=== PATIENT | female | born 1985 | race African-American/Black ===

== ENCOUNTER 2016-07-06 13:24 | Emergency (ER) | payer OTHER ==
[2016-07-06 13:43] VITALS: BP 108/67; PULSE 72; TEMP 98.2; BMI 22.6
--- NOTE | 2016-07-06 15:47 | PDOC ---
History of Present Illness - General Chief Complaint: Cold Symptoms Stated Complaint: COLD SYMPTOMS Time Seen by Provider: 07/06/16 15:11 History Source: Patient Exam Limitations: No Limitations - History of Present Illness Initial Comments: 07/06/16 15:46 My Chief complaint: Sore throat and fever History of present illness: Patient is a 30-year-old female with no significant medical history here today complaining of fever, chills, and sore throat 2 days. Patient denies any difficulty swallowing or breathing, nausea vomiting or diarrhea or cough. Patient did not have influenza vaccine. 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 07/06/16 15:48 Timing/Duration: intermittent (2 days fever and sore throat) Severity: mild Associated Symptoms: reports: fever/chills, other (sore throat 2 days) Past History - Past Medical History Allergies/Adverse Reactions: Allergies Allergy/AdvReac Type Severity Reaction Status Date / Time No Known Allergies Allergy Verified 07/06/16 13:39 Home Medications: Ambulatory Orders Vitamins (Sjr) - 1 tab PO DAILY 04/03/14 Penicillin V Potassium [Pen Vee K -] 500 mg PO QID #28 tablet 07/06/16 Other medical history: NONE - Psycho/Social/Smoking Cessation Hx Anxiety: No Suicidal Ideation: No Smoking History: Never smoked Have you smoked in the past 12 months: No Information on smoking cessation initiated: No Hx Alcohol Use: No Drug/Substance Use Hx: No Substance Use Type: None Hx Substance Use Treatment: No Review of Systems - Review of Systems Able to Perform ROS?: Yes Constitutional: Yes: Chills, Fever HEENTM: Yes: Throat Pain Respiratory: No: Symptoms reported Cardiac (ROS): No: Symptoms Reported ABD/GI: No: Symptoms Reported : No: Symptoms Reported Musculoskeletal: No: Symptoms Reported Integumentary: No: Symptoms Reported Neurological: No: Symptoms reported *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 - Vital Signs Last Vital Signs Temp Pulse Resp BP Pulse Ox 98.2 F 72 18 108/67 100 07/06/16 13:40 07/06/16 13:40 07/06/16 13:40 07/06/16 13:40 07/06/16 13:40 - 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 General Appearance: Yes: Appropriately Dressed HEENT: positive: TMs Normal, Pharyngeal Erythema, Tonsillar Erythema (with no uvular deviation ). negative: Tonsillar Exudate, Nasal Congestion, Rhinorrhea Neck: positive: Lymphadenopathy (R), Lymphadenopathy (L) Respiratory/Chest: positive: Lungs Clear, Normal Breath Sounds. negative: Chest Tender, Respiratory Distress Cardiovascular: positive: Regular Rhythm, Regular Rate, S1, S2 Integumentary: positive: Normal Color Neurologic: positive: Alert, Normal Response, Responsive Medical Decision Making - Medical Decision Making 07/06/16 15:48 Patient is a 30-year-old female with no significant medical history here today complaining of fever, chills, and sore throat 2 days. Patient denies any difficulty swallowing or breathing, nausea vomiting or diarrhea or cough. Patient did not have influenza vaccine. 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 Tonsillitis rule out strep throat Fever Rule out influenza A or B Plan: Throat C&S negative however clinical symptoms will treat for strep throat with pen vk 500 mg qid for 7 days Influenza A and B rapid negative 07/06/16 16:13 *DC/Admit/Observation/Transfer Diagnosis at time of Disposition: Acute tonsillitis Qualifiers: Pharyngitis/tonsillitis etiology: unspecified etiology Qualified Code(s): J03.90 - Acute tonsillitis, unspecified - Discharge Dispostion Disposition: HOME Condition at time of disposition: Stable - Patient Instructions Additional Instructions: Drink a lot a fluids and rest Throat without toothbrush at end of treatment Ibuprofen or acetaminophen as needed as directed by system specialist for fever or pain Return to emergency room if any difficulty breathing or swallowing Patient voiced understanding of discharge instructions and all questions were answered
== END 2016-07-06 16:25 | disposition home or self-care (01) ==
LOC: JERFT 13:24
DX: J03.90 Acute tonsillitis, unspecified (principal)
CPT/HCPCS: 87070; 87430; 87804; 99281-25

== ENCOUNTER 2017-01-02 13:30 | Inpatient (IN) | payer OTHER ==
[2017-01-02 14:13] VITALS: BMI 27.7
[2017-01-02] MEDS ORDERED: BUTORPHANOL TARTRATE 1 MG/ML VIAL IVPB ONE (15:13)
[2017-01-02] MEDS ORDERED: PROMETHAZINE HCL 25 MG/1 ML VIAL IVPUSH ONE (15:13)
[2017-01-02] MEDS ORDERED: ACETAMINOPHEN 325 MG TABLET (FP) PO PRN (15:16)
[2017-01-02] MEDS: MISOPROSTOL 200 MCG TABLET PV SCH ×3 (15:20→23:30)
[2017-01-02] MEDS: DEXTROSE 5%-LACTATED RINGERS 1,000 ML IV SCH ×2 (15:30→23:00)
--- NOTE | 2017-01-02 15:37 | HP ---
Past Medical History - Primary Care Physician PCP:: Key Sandy - Admission Chief Complaint: 31 yrs , LMP 07/26/16,EDC 05/02/17 by 22.3 weeks, by dates, EDC by sono 04/27/17 23.4/7 weeks by sono is diagnosed demise admitted for induction of labor sono report 23.4 wks, IUFD , Vx, placenta post , Cx 3.7 cm History of Present Illness: care at , [facility] pt was seen in L&D on 12/28/16 , c/o groin pain , spontaneous variable decel were seen one decel was down to 70 bpm . No UC were seen 12/28/16 sono reported 22.6/7 weeks sliup variable position, post placenta, , AF wnl. EFW 1'2" ( 41 % tile growth ) CX 3.56 cm work Up A Pos, Hbsag neg, Rpr nr, Rubella pos, Hiv neg , Sickle neg NT screen not done. 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 Weeks Gestation by Dates: 23.4 ...EDC by Dates: 05/02/17 ...EDC by Sono: 04/27/17 (23.4 weeks by sono ) Additional OB History: G1 07/2000 Ind Ab 16 weeks. G2 02/10/2007 7'2 ". G3 03/19/2010 9'8" [facility]. G4 09/15/2011 Ind Ab 07 weeks h/o hemorrhage. G5 Sp Ab 03 weeks. G6 04/04/2014 6'5" [facility] Heme/Onc: Yes: Anemia Infectious Disease: No: AIDS, C-Diff, HIV, STD's Psych: No: Addictions, Bipolar, Depression - Past Surgical History Past Surgical History: Yes: Breast Biopsy (lt breast biopsy) Hx Myomectomy: No Hx Transabdominal Cerclage: No - Smoking History Smoking history: Never smoked Have you smoked in the past 12 months: No - Alcohol/Substance Use Hx Alcohol Use: No History of Substance Use: reports: None - Social History History of Recent Travel: No Home Medications - Allergies Allergies/Adverse Reactions: Allergies Allergy/AdvReac Type Severity Reaction Status Date / Time No Known Allergies Allergy Verified 07/06/16 13:39 - Home Medications Home Medications: Ambulatory Orders RX: Vitamins (Sjr) - 1 tab PO DAILY 04/03/14 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 - Maternity Vital Signs: Vital Signs Temperature 98.9 F 01/02/17 14:03 Pulse Rate 85 01/02/17 14:03 Respiratory Rate 20 01/02/17 14:03 Blood Pressure 122/69 01/02/17 14:03 O2 Sat by Pulse Oximetry (%) Constitutional: Yes: Well Nourished Eyes: Yes: WNL HENT: Yes: WNL, Normocephalic Neck: Yes: WNL Cardiovascular: Yes: WNL Lungs: Clear to auscultation Breast(s): Yes: WNL - Abdominal Exam/OB Fundal Height: 24 Number of Fetuses: Single Presentation: Vertex Contractions: No Heart Rate (range): abs Accelerations: None Decelerations: None - Vaginal Exam/OB Vaginal Bleediing: No Speculum Exam: No Dilatation (cm): close Effacement (%): 0% Amniotic Membrane Status: Intact Presentation: Vertex/Position Station: -4 - 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 Musculoskeletal: Yes: WNL Extremities: No: Calf Tenderness Integumentary: Yes: Tattoos Deep Tendon Reflex Grade: Normal +2 ...Motor Strength: WNL Psychiatric: Yes: WNL, Alert, Oriented - Labs Lab Results: Laboratory Tests 01/02/17 01/02/17 01/02/17 14:30 14:30 14:30 WBC 8.2 D Hgb 12.3 Hct 36.7 Plt Count 243 D Neutrophils % 60.6 D Lymphocytes % 25.1 D Monocytes % 7.0 Eosinophils % 6.8 H D Basophils % 0.5 INR 0.99 PTT (Actin FS) 26.1 L Sodium 137 Potassium 3.7 Chloride 105 Carbon Dioxide 21 BUN 7 Creatinine 0.5 L D Random Glucose 66 L Calcium 8.8 Total Bilirubin 0.4 AST 18 ALT 21 Problem List - Problems (1) with 23 completed weeks gestation Code(s): Z3A.23 - 23 WEEKS GESTATION OF (2) IUFD at 20 weeks or more of gestation Code(s): O36.4XX0 - MATERNAL CARE FOR INTRAUTERINE , NOT APPLICABLE OR UNSP (3) Elective induction of labor planned Code(s): PPK8402 - Assessment/Plan 31 yrs , 23.4/7 weeks , IUFD . pt was offered to be transferred to [facility] for D&E versus induction with Vag Misoprostol Pt prefers to be induced at [facility] . Plan Misoprostol 400 MCG PV q 3Hr until delivery
[2017-01-02 15:40] LABS: BASOPHIL 0.5 % (0-2.0); EOSINOPHIL 6.8 % (0-4.5); MCH 28.6 pg (25.7-33.7); MCHC 33.5 g/dl (32.0-36.0); MEAN CELL VOLUME 85.5 fl (80-96); MEAN PLT VOLUME 8.3 fl (7.5-11.1); NEUTROPHILS 60.6 % (42.8-82.8); PLATELET COUNT 243 K/MM3 (134-434); RDW 15.6 % (11.6-15.6); WHITE BLOOD COUNT 8.2 K/mm3 (4.0-10.0)
[2017-01-02 15:52] LABS: INR 0.99 (0.82-1.09); PROTHROMBIN TIME (PATIENT) 10.9 SEC (9.98-11.88)
[2017-01-02 15:55] LABS: ACTIVATED PTT 26.1 SECONDS (26.9-34.4)
[2017-01-02 16:01] LABS: ALBUMIN 2.9 g/dl (3.4-5.0); ALK PHOS 54 U/L (45-117); ANION GAP 11 (8-16); BILIRUBIN,TOTAL 0.4 mg/dL (0.2-1.0); CALCIUM 8.8 mg/dL (8.5-10.1); CO2 21 mmol/L (21-32); CREATININE 0.5 mg/dL (0.55-1.02); GLUCOSE,RANDOM 66 mg/dL (74-106); SGOT/AST 18 U/L (15-37); SGPT/ALT 21 U/L (12-78); TOT PROT 6.9 g/dl (6.4-8.2)
--- NOTE | 2017-01-02 23:47 | PN ---
Progress Note (short form) - Note Progress Note: 23.6 weeks , IUFD h/o last FM felt yesterday Misoprostol ( cytotec ) 400 mcg, was inserted at 15.20. 19.50,, 23.30 hr . Onset of cramps since 22 hr . Stadol 2mg + Phenrgan 25 mg iv stat given for pain at 23.00 hr . 23.30 hr cx 5 cm /100%/FL /pp soft ? breech /station -2/-1 . c/o shivering Temp 99.0 Selected Entries 01/02/17 01/02/17 22:00 23:00 Temperature 99.2 F Pulse Rate 85 83 Blood Pressure 100/55 112/[address] intrapartum care Laboratory Tests 01/02/17 01/02/17 14:30 14:30 Fibrinogen 356.0 Fibrin Degrad Products Pending Problem List - Problems (1) with 23 completed weeks gestation Code(s): Z3A.23 - 23 WEEKS GESTATION OF (2) IUFD at 20 weeks or more of gestation Code(s): O36.4XX0 - MATERNAL CARE FOR INTRAUTERINE , NOT APPLICABLE OR UNSP (3) Elective induction of labor planned Code(s): TDD8789 -
--- NOTE | 2017-01-03 00:55 | PN ---
Delivery - Delivery Vaginal Delivery: No Problems, Spontaneous Episiotomy/Laceration: None EBL (cc): 200 Delivery, Single - Stages of Labor Date 1st Stage Initiatied: 01/02/17 Time 1st Stage Initiated: 22:00 Date 2nd Stage Initiated: 01/03/17 Time 2nd Stage Initiated: 00:05 Date of Delivery: 01/03/17 Time of Delivery: 00:15 (fetus in sac with placenta completely delievered as one mass. 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 bluish discolration around umblicus , cord insertion site for large area in circular diameter of 3 cm .umblical cord is thtrmbosed throught the length .) Position: OA - 1 Minute Total Score: 0 5 Minutes Total Score: 0 - Feeding Plan Initial Plan: Elected not to breastfeed exclusively throughout hospitalization Remarks - Remarks Remarks: 31 yrs , 23.5/7 weeks gestation diagnosed IUFD Pnc at [address] [place] [address] . Cytotec 400 mg pv x 3 doses reqd. stadol + phenrgan iv for labor analgesia was given Intrapartum course uneventful .
[2017-01-03] MEDS ORDERED: IBUPROFEN 600 MG TABLET (FP) PO PRN (01:02)
[2017-01-03] MEDS ORDERED: BENZOCAINE 20% 57 GM BOTTLE TP PRN (01:02)
[2017-01-03] MEDS ORDERED: BENZOCAINE 28 GM HEMORRHOIDAL OINTMENT TP PRN (01:02)
[2017-01-03] MEDS ORDERED: BISACODYL 10 MG SUPP.RECT RC PRN (01:02)
[2017-01-03] MEDS ORDERED: WITCH HAZEL 50% (TUCKS) 40 PAD/JAR PAD TP PRN (01:02)
[2017-01-03] MEDS ORDERED: METHYLERGONOVINE MALEATE 0.2 MG/1 ML AMP IM PRN (01:02)
[2017-01-03] MEDS ORDERED: oxyCODONE HCL 5 MG TABLET PO PRN (01:02)
[2017-01-03] MEDS ORDERED: CEFAZOLIN 1 GM/D5W 50 ML IVPB ONE (01:13)
[2017-01-03] MEDS ORDERED: D5W-LR W/ 20 UNITS OXYTOCIN 1,000 ML IV SCH (01:15)
[2017-01-03] MEDS: MISOPROSTOL 200 MCG TABLET PV SCH (02:17)
[2017-01-03] MEDS: FERROUS SO4 325 MG TABLET (FP) PO SCH ×2 (07:45→17:31)
--- NOTE | 2017-01-03 09:50 | PN ---
Post Progress Note - Subjective Subjective: no complains Post Day: 0 Type of Delivery: Vital Signs: Vital Signs Temperature 99.1 F 01/03/17 05:04 Pulse Rate 77 01/03/17 05:04 Respiratory Rate 20 01/03/17 05:04 Blood Pressure 117/67 01/03/17 05:04 O2 Sat by Pulse Oximetry (%) 100 01/03/17 01:30 Breast Exam: Yes: Soft. No: Engorged Uterus: Yes: Non-tender. No: Fundus Firm Lochia: Yes: Rubra Lochia, amount: Moderate Extremities: Yes: Calves non-tender Perineum: Yes: Intact Activity: Ambulating - Labs Labs: CBC WBC 8.2 K/mm3 (4.0-10.0) D 01/02/17 14:30 RBC 4.29 M/mm3 (3.60-5.2) 01/02/17 14:30 Hgb 12.3 GM/dL (10.7-15.3) 01/02/17 14:30 Hct 36.7 % (32.4-45.2) 01/02/17 14:30 MCV 85.5 fl (80-96) 01/02/17 14:30 MCH 28.6 pg (25.7-33.7) 01/02/17 14:30 MCHC 33.5 g/dl (32.0-36.0) 01/02/17 14:30 RDW 15.6 % (11.6-15.6) 01/02/17 14:30 Plt Count 243 K/MM3 (134-434) D 01/02/17 14:30 MPV 8.3 fl (7.5-11.1) 01/02/17 14:30 Neutrophils % 60.6 % (42.8-82.8) D 01/02/17 14:30 Lymphocytes % 25.1 % (8-40) D 01/02/17 14:30 Monocytes % 7.0 % (3.8-10.2) 01/02/17 14:30 Eosinophils % 6.8 % (0-4.5) H D 01/02/17 14:30 Basophils % 0.5 % (0-2.0) 01/02/17 14:30 Problem List - Problems (1) with 23 completed weeks gestation Code(s): Z3A.23 - 23 WEEKS GESTATION OF (2) IUFD at 20 weeks or more of gestation Code(s): O36.4XX0 - MATERNAL CARE FOR INTRAUTERINE , NOT APPLICABLE OR UNSP (3) Elective induction of labor planned Code(s): IUG8891 - Assessment/Plan stable pt is well adjusted & accepted demise . requests for discharge tomorrow. social welfare research worker to see her today.
[2017-01-03] MEDS: PRENATAL VITAMINS W/ FOLIC ACID TABLET (FP) PO SCH (10:06)
[2017-01-04] MEDS: FERROUS SO4 325 MG TABLET (FP) PO SCH (08:06)
--- NOTE | 2017-01-04 08:33 | PN ---
Progress Note (short form) - Note Progress Note: ppd1 doing well, no pain, no excess vaginal bleeding CBC, BMP 01/02/17 14:30 01/02/17 14:30 Last Vital Signs Temp Pulse Resp BP Pulse Ox 98.4 F 72 20 104/70 100 01/03/17 21:00 01/03/17 21:00 01/03/17 21:00 01/03/17 21:00 01/03/17 01:30 uterus firm, non tender lochia mild, no calf tendernes plan ambulate, cbc d/c home . rtc 4 weeks, instruction given
[2017-01-04 08:53] LABS: BASOPHIL 0.7 % (0-2.0); EOSINOPHIL 4.4 % (0-4.5); MCH 28.6 pg (25.7-33.7); MCHC 33.3 g/dl (32.0-36.0); MEAN CELL VOLUME 85.9 fl (80-96); MEAN PLT VOLUME 8.2 fl (7.5-11.1); NEUTROPHILS 69.7 % (42.8-82.8); PLATELET COUNT 204 K/MM3 (134-434); WHITE BLOOD COUNT 10.8 K/mm3 (4.0-10.0)
[2017-01-04] MEDS: PRENATAL VITAMINS W/ FOLIC ACID TABLET (FP) PO SCH (09:12)
[2017-01-04 11:46] VITALS: BP 110/68; PULSE 79; TEMP 98.2
--- NOTE | 2017-01-04 15:49 | DS ---
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-TAPER MACHINE Vital Signs: Vital Signs Temperature 98.2 F 01/04/17 09:00 Pulse Rate 79 01/04/17 09:00 Respiratory Rate 20 01/04/17 09:00 Blood Pressure 110/68 01/04/17 09:00 O2 Sat by Pulse Oximetry (%) 100 01/03/17 01:30 Constitutional: Yes: Well Nourished Eyes: Yes: WNL HENT: Yes: WNL Neck: Yes: WNL Cardiovascular: Yes: WNL, Regular Rate and Rhythm Respiratory: Yes: WNL, Regular Gastrointestinal: Yes: WNL, Normal Bowel Sounds ...Rectal Exam: Yes: WNL Renal/: Yes: WNL Pelvis: Yes: WNL External Genitalia: Yes: Normal ....Post : Yes: Uterus firm, Uterus non-tender, Moderate lochia rubra, Moderate lochia serosa Musculoskeletal: Yes: WNL Extremities: Yes: WNL. No: Calf Tenderness Edema: No Integumentary: Yes: WNL, Tattoos Neurological: Yes: WNL ...Motor Strength: WNL Psychiatric: Yes: WNL, Alert Labs: CBC, BMP 01/04/17 07:30 01/02/17 14:30 Delivery - Delivery Vaginal Delivery: No Problems, Spontaneous (sac, with fetus within & placenta expelled spontaeneously) Type of Anesthesia: None Episiotomy/Laceration: None EBL (cc): 200 Delivery, Single - Stages of Labor Date 1st Stage Initiatied: 01/02/17 Time 1st Stage Initiated: 22:00 Date 2nd Stage Initiated: 01/03/17 Time 2nd Stage Initiated: 00:05 Date of Delivery: 01/03/17 Time of Delivery: 00:15 Time Placenta Delivered: 00:15 Placenta: Yes: Spontaneous, Uterine Exploration - Condition of Infant Transport 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 Cytotec 400 mg pv x 3 doses reqd. stadol + phenrgan iv for labor analgesia was given Intrapartum course uneventful .. post course uneventful . discharge 01/04/17 Discharge Summary Reason For Visit: DEMISE Condition: Stable - Instructions Diet, Activity, Other Instructions: Discharge Instructions * Out of Bed * Regular Diet * Matilde Care * Avoid sex for 6 weeks * RTC 6 weeks for pp visit , call [phone] for appt If you experience excessive bleeding or fever over 101 degrees, call doctor, the clinic or go to the Emergency Room. Referrals: Key Sandy MD [Staff Physician] - Disposition: HOME - Home Medications Comprehensive Discharge Medication List: Ambulatory Orders Vitamins (Sjr) - 1 tab PO DAILY 04/03/14 Acetaminophen [Tylenol .Regular Strength -] 650 mg PO Q4H PRN #0 tablet Ferrous Sulfate [Feosol] 325 mg PO BIDWM tab 01/03/17 Ibuprofen [Motrin -] 200 mg PO Q4H PRN #0 tablet 01/03/17 Vitamins (Sjr) - 1 tab PO DAILY tablet 01/03/17
[2017-01-04] MEDS ORDERED: SENNOSIDES/DOCUSATE COMBO (SENNA PLUS) TABLET (UD) PO PRN (22:00)
--- NOTE | 2017-01-08 16:03 | PATH ---
Surgical Pathology Report Patient Name: EV SAL Med. Rec. #: [id number] /Age/Gender: 1985 (Age: 31) / F Account: [id number] Location: [facility] OBS/PIGMENT PROCESSOR Taken: 01/03/2017 Received: 01/03/2017 Reported: 01/08/2017 Physicians: Key Sandy M.D. Specimen(s) Received PLACENTA Clinical History , demise at 23 weeks 5 days - demise Final Diagnosis PLACENTA, DELIVERY: FOCALLY DISRUPTED IMMATURE SECOND TRIMESTER PLACENTA WITH CHRONIC DECIDUITIS, SCATTERED CIRCULATING NUCLEATED RED BLOOD CELLS, MILD INCREASE PREVILLOUS FIBRIN DEPOSITION, THREE VESSEL HYPERCOILED UMBILICAL CORD AND PLACENTAL MEMBRANES WITH ACUTE CHORIOAMNIONITIS. Electronically Signed Fredrick Rubio M.D. Gross Description The specimen is received fresh, labeled "placenta" and is a 156 gram, 11.0 x 10.5 x 2.2 cm placenta with attached membranes and umbilical cord. The attached membranes are gomez with focal opacities and insert marginally. The umbilical cord has a brown, dusky appearance and is hypercoiled. The cord measures 27 cm. in length and averages 0.8 cm. in diameter. The cord inserts eccentrically, 2 cm to the nearest margin. No true knots or strictures are identified. Cut surface of the umbilical cord reveals 3 vessels. The surface is fischer-blue with minimal fibrin deposition and appropriate caliber vessels. The maternal surface is red-brown with focal defects. Sectioning reveals pale gomez-pink, spongy parenchyma. No focal lesions are identified. Intensive Care Unit Registered Nurse sections are submitted in 4 cassettes as follows: 1- membrane rolls and umbilical cord; 2- 4 - full thickness sections of placenta. 01/07/201701/07/2017
== END 2017-01-04 10:55 | disposition home or self-care (01) | DRG 560 ==
LOC: JLDR 13:30 → J3W 01-03 02:30
PROVIDERS: ADMIT Obstetrics & Gynecology; ATTEND Obstetrics & Gynecology
PROC: 10E0XZZ Delivery of Products of Conception, External Approach (ICD-10-PCS; principal; 2017-01-03)
DX: O36.4XX0 Maternal care for intrauterine death, not applicable or unspecified (principal); Z3A.23 23 weeks gestation of pregnancy; Z37.1 Single stillbirth
CPT/HCPCS: 36415; 59409; 80053; 85025; 85362; 85384; 85610; 85730; 86593; 86850; 86900; 86901; 88307-TC

== ENCOUNTER 2018-04-21 18:51 | Emergency (ER) | payer OTHER ==
[2018-04-21 19:27] VITALS: BP 117/67; PULSE 18; TEMP 99.3; BMI 29.0
--- NOTE | 2018-04-21 19:28 | PDOC ---
Rapid Medical Evaluation Time Seen by Provider: 04/21/18 19:26 Medical Evaluation: Allergies Allergy/AdvReac Type Severity Reaction Status Date / Time No Known Allergies Allergy Verified 07/06/16 13:39 04/21/18 19:27 Pt c/o: lower/mid rt abd pain x 1 day, no other complaints Pt on brief exam: no cva tenderness pt ordered for: ua, upreg pt to proceed to the ED Discharge Disposition - Diagnosis Abdominal pain - Referrals - Patient Instructions - Post Discharge Activity
== END 2018-04-21 21:44 | disposition left against medical advice (07) ==
LOC: JER 18:51
DX: R10.30 Lower abdominal pain, unspecified (principal)
CPT/HCPCS: 99281-25

== ENCOUNTER 2019-01-27 11:01 | Emergency (ER) | payer OTHER ==
[2019-01-27 11:10] VITALS: TEMP 99.6; BMI 24.2
[2019-01-27] MEDS ORDERED: morphine CARPU-JECT 4 MG/1 ML DISP.SYRIN IVPUSH ONE (12:53)
[2019-01-27] MEDS ORDERED: SODIUM CHLORIDE 1,000 ML IV STA (13:03)
[2019-01-27] MEDS ORDERED: morphine SULFATE 4 MG/ML VIAL ONE (13:53)
[2019-01-27 14:16] LABS: BASO % 0.4 % (0-2.0); EOS % 0.1 % (0-4.5); HEMATOCRIT 38.6 % (32.4-45.2); HEMOGLOBIN 12.8 GM/dL (10.7-15.3); LYMPH % 11.7 % (8-40); MCH 27.5 pg (25.7-33.7); MCHC 33.2 g/dl (32.0-36.0); MEAN CELL VOLUME 82.8 fl (80-96); MEAN PLT VOLUME 8.3 fl (7.5-11.1); MONO % 3.8 % (3.8-10.2); PLATELET COUNT 244 K/MM3 (134-434); RBC 4.66 M/mm3 (3.60-5.2); RDW 15.5 % (11.6-15.6); WHITE BLOOD COUNT 20.6 K/mm3 (4.0-10.0)
--- NOTE | 2019-01-27 14:42 | PDOC ---
History of Present Illness - General Chief Complaint: Pain, Acute Stated Complaint: ABD PAIN Time Seen by Provider: 01/27/19 12:28 History Source: Patient Exam Limitations: No Limitations Past History - Past Medical History Allergies/Adverse Reactions: Allergies Allergy/AdvReac Type Severity Reaction Status Date / Time No Known Allergies Allergy Verified 01/27/19 11:10 Home Medications: Ambulatory Orders NK [No Known Home Medication] 01/27/19 Asthma: No Cancer: No Cardiac Disorders: No COPD: No Diabetes: No HTN: No Seizures: No Thyroid Disease: No - Suicide/Smoking/Psychosocial Hx Smoking History: Never smoked Have you smoked in the past 12 months: No Hx Alcohol Use: No Drug/Substance Use Hx: No Substance Use Type: None Hx Substance Use Treatment: No *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 - Vital Signs Last Vital Signs Temp Pulse Resp BP Pulse Ox 99.6 F 94 H 16 128/86 100 01/27/19 11:06 01/27/19 11:06 01/27/19 11:06 01/27/19 11:06 01/27/19 11:06 - 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 General Appearance: No: Apparent Distress Respiratory/Chest: positive: Lungs Clear, Normal Breath Sounds. negative: Respiratory Distress Cardiovascular: positive: Regular Rhythm, Regular Rate, S1, S2. negative: Murmur Gastrointestinal/Abdominal: positive: Tender (generalized, LLQ>>other quadrants) , Soft. negative: Distended, Guarding, Rebound Musculoskeletal: negative: CVA Tenderness Integumentary: positive: Normal Color Neurologic: positive: Alert, Normal Mood/Affect ED Treatment Course - LABORATORY CBC & Chemistry Diagram: 01/27/19 14:05 01/27/19 14:05 - ADDITIONAL ORDERS Additional order review: Laboratory Results 01/27/19 13:50 Urine HCG, Qual Negative 01/27/19 14:05 RBC 4.66 MCV 82.8 MCHC 33.2 RDW 15.5 MPV 8.3 Neutrophils % 84.0 H D Lymphocytes % 11.7 D Monocytes % 3.8 Eosinophils % 0.1 D Basophils % 0.4 - RADIOLOGY Radiology Studies Ordered: Category Date Time Status SPIRAL- RENAL-STONE CT [CT] Stat CT Scan 01/27/19 13:03 Ordered - Medications Given in the ED: ED Medications Discontinued Medications Generic Name Dose Route Start Last Admin Trade Name Freq PRN Reason Stop Dose Admin Sodium Chloride 1,000 mls @ 1,000 mls/hr 01/27/19 13:03 01/27/19 14:06 Normal Saline - IV 01/27/19 14:02 1,000 mls/hr ASDIR STA Administration Morphine Sulfate 4 mg 01/27/19 12:53 01/27/19 14:06 Morphine Injection - IVPUSH 01/27/19 12:54 4 mg ONCE ONE Administration Medical Decision Making - Medical Decision Making 33 y/o F with no sig pmh, no prior surgeries presents with upper abd pain from yesterday while eating tukey sandwich. Took Motrin last night with slight relief of pain. Went to urgent care today and was told to come to ED for evaluation; had urine done at urgent care which showed microscopic blood. Denies having this pain before. Denies fever, sob, cp, n/v/d, constipation, dysuria, hematuria, abnormal vaginal discharge. Rarely drinks alcohol. Denies drug use or smoking. Patient is on Depo shot and has not gotten her menstrual cycle in long time Patient's urine noted bedside - appears red/orange in color Consider possible kidney stones; ?appendicitis, diverticulitis; less suspicious for pancreatitis, cholecystitis Plan: Labs, IVF, pain control, CT A/P, reassess 01/27/19 14:39 CT A/P shows no acute pathology Notable for marked leukocytosis in labs - 20.6 On repeat examination, patient states pain has returned; still with diffuse tenderness (greatest in LLQ) Will get TVUS to further assess If negative, will consider admission for further evaluation 01/27/19 17:13 TVUS also negative Pain improved from 01/03 to 6 Discussed with patient, unclear cause of pain; can consider admission for serial abdominal exam and repeat bloodwork or patient can f/u as outpatient Patient states feels comfortable enough to go home and would prefer not to stay Return precautions discussed 01/27/19 18:48 *DC/Admit/Observation/Transfer Diagnosis at time of Disposition: Abdominal pain Qualifiers: Abdominal location: generalized Qualified Code(s): R10.84 - Generalized abdominal pain - Discharge Dispostion Disposition: HOME Condition at time of disposition: Stable Decision to Admit order: No - Referrals Referrals: Ghulam Higginbotham MD [Staff Physician] - 2 Days - Patient Instructions Printed Discharge Instructions: DI for Abdominal Pain-Adult Additional Instructions: Thank you for choosing [facility]. It was a pleasure taking care of you. There were no acute findings noted on your CT scan and pelvic ultrasound Please follow-up in primary care clinic in 2 days Return to the Emergency Department if your symptoms worsen or persist, you have fever, shortness of breath, chest pain, severe abdominal pain, vomiting, unable to keep down liquids or other concerning symptoms. - Post Discharge Activity
[2019-01-27 14:44] LABS: ALBUMIN 3.7 g/dl (3.4-5.0); BILIRUBIN,TOTAL 0.9 mg/dL (0.2-1); BLOOD UREA NITROGEN 6.6 mg/dL (7-18); CALCIUM 9.2 mg/dL (8.5-10.1); CREATININE 0.7 mg/dL (0.55-1.3); POTASSIUM 3.8 mmol/L (3.5-5.1); TOT PROT 7.3 g/dl (6.4-8.2)
[2019-01-27 14:45] LABS: EPI CELLS 1.9 /HPF (0-5/HPF); HYALINE CASTS 1 /lpf (0-8); URINE APPEARANCE CLEAR; URINE BACTERIA 8.5 /hpf (NEGATIVE); URINE BILIRUBIN NEGATIVE (NEGATIVE); URINE COLOR ORANGE; URINE GLUCOSE (UA) NEGATIVE (NEGATIVE); URINE KETONE NEGATIVE (NEGATIVE); URINE LEUK ESTERASE NEGATIVE (NEGATIVE); URINE NITRITE NEGATIVE (NEGATIVE); URINE PROTEIN TRACE (NEGATIVE); URINE RBC 16 /hpf (0-4); URINE WBC 1 /hpf (0-5)
[2019-01-27 15:07] LABS: ANISOCYTOSIS 0; MACROCYTOSIS 0; PLATELET ESTIMATE NORMAL
[2019-01-27] MEDS ORDERED: ACETAMINOPHEN 1000 MG/100 ML VIAL (NON FORMULARY) IVPB ONE (16:46)
[2019-01-27] MEDS ORDERED: ACETAMINOPHEN INJECTION 100 ML IVPB ONE (16:55)
--- NOTE | 2019-01-27 17:12 | PDOC ---
*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 - Vital Signs Last Vital Signs Temp Pulse Resp BP Pulse Ox 99.6 F 94 H 16 128/86 100 01/27/19 11:06 01/27/19 11:06 01/27/19 11:06 01/27/19 11:06 01/27/19 11:06 ED Treatment Course - LABORATORY CBC & Chemistry Diagram: 01/27/19 14:05 01/27/19 14:05 - ADDITIONAL ORDERS Additional order review: Laboratory Results 01/27/19 01/27/19 01/27/19 14:05 13:50 13:50 Sodium 139 Potassium 3.8 Chloride 108 H Carbon Dioxide 25 Anion Gap 6 L BUN 6.6 L Creatinine 0.7 Est GFR (CKD-EPI)AfAm 131.94 Est GFR (CKD-EPI)NonAf 113.84 Random Glucose 83 Calcium 9.2 Total Bilirubin 0.9 AST 14 L ALT 15 Alkaline Phosphatase 63 Total Protein 7.3 Albumin 3.7 Lipase 77 Urine Color [place] Urine Appearance Clear Urine pH 6.0 Ur Specific [place] 1.025 Urine Protein Trace Urine Glucose (UA) Negative Urine Ketones Negative Urine Blood 1+ H Urine Nitrite Negative Urine Bilirubin Negative Urine Urobilinogen 1.0 Ur Leukocyte Esterase Negative Urine WBC (Auto) 1 Urine RBC (Auto) 16 Urine Casts (Auto) 1 U Epithel Cells (Auto) 1.9 Urine Bacteria (Auto) 8.5 Urine HCG, Qual Negative 01/27/19 14:05 RBC 4.66 MCV 82.8 MCHC 33.2 RDW 15.5 MPV 8.3 Neutrophils % 84.0 H D Lymphocytes % 11.7 D Monocytes % 3.8 Eosinophils % 0.1 D Basophils % 0.4 - Medications Given in the ED: ED Medications Discontinued Medications Generic Name Dose Route Start Last Admin Trade Name Freq PRN Reason Stop Dose Admin Sodium Chloride 1,000 mls @ 1,000 mls/hr 01/27/19 13:03 01/27/19 14:06 Normal Saline - IV 01/27/19 14:02 1,000 mls/hr ASDIR STA Administration Morphine Sulfate 4 mg 01/27/19 12:53 01/27/19 14:06 Morphine Injection - IVPUSH 01/27/19 12:54 4 mg ONCE ONE Administration Medical Decision Making - Medical Decision Making 01/27/19 16:46 The patient was seen and evaluated in conjunction with RUDDY Mora under my direct supervision, ancillary studies were reviewed. I independently evaluated the patient and I agree with the plan as outlined by RUDDY Mora . 33y F no pmhx presents with abdominal pain since eysterday that is described as sharp, without associated n/v, diarrhea, fever/chills, dysuria, requency, vag discharge. No change of food or with BM (last bm at 9am today). no prior abd srugical history. no prior simialr abd pain inthe past. pt is sexually active with one partner. exam: no acute distress, well appearing abd: mild diffuse ttp but localizes most to LLQ lbas reivwed and noted for leukoctyosis UA neg for UTI CT abd unremakrble pt still with lower abd ttp - will obtain pelvic US To screen for TOA if neg and if pt still persitently tender, may observe for serial abd reassessment and to trend her leukocytosis
[2019-01-27 19:01] VITALS: BP 124/76; PULSE 74
== END 2019-01-27 19:02 | disposition home or self-care (01) ==
LOC: JER 11:01
PROC: 3E0337Z Introduction of Electrolytic and Water Balance Substance into Peripheral Vein, Percutaneous Approach (ICD-10-PCS; principal; 2019-01-27)
PROC: 3E033NZ Introduction of Analgesics, Hypnotics, Sedatives into Peripheral Vein, Percutaneous Approach (ICD-10-PCS; 2019-01-27)
PROC: 3E033NZ Introduction of Analgesics, Hypnotics, Sedatives into Peripheral Vein, Percutaneous Approach (ICD-10-PCS; 2019-01-27)
DX: R10.84 Generalized abdominal pain (principal)
CPT/HCPCS: 36415; 74177-TC; 76830-TC; 80053; 81003; 83690; 84703; 85025; 87086; 96371; 96374; 96375; 99284-25; J0131; J7030

== ENCOUNTER 2022-11-08 16:54 | Emergency (ER) | payer OTHER ==
[2022-11-08 17:02] VITALS: TEMP 98; BMI 29.0
[2022-11-08 17:56] LABS: BASO % 1.1 % (0-2.0); EOS % 1.7 % (0-4.5); HEMATOCRIT 30.1 % (32.4-45.2); HEMOGLOBIN 9.4 GM/dL (10.7-15.3); LYMPH % 48.5 % (8-40); MCH 21.8 pg (25.7-33.7); MCHC 31.3 g/dl (32.0-36.0); MEAN CELL VOLUME 69.7 fl (80-96); MEAN PLT VOLUME 7.5 fl (7.5-11.1); MONO % 9.2 % (3.8-10.2); NEUT % 39.5 % (42.8-82.8); PLATELET COUNT 426 10^3/uL (134-434); RBC 4.31 M/mm3 (3.60-5.2); RDW 21.8 % (11.6-15.6); WHITE BLOOD COUNT 5.3 K/mm3 (4.0-10.0)
[2022-11-08 18:04] LABS: INR 1.12 (0.83-1.09)
[2022-11-08 18:07] LABS: ACTIVATED PTT 26.5 SECONDS (25.2-36.5)
[2022-11-08 18:15] LABS: CALCIUM 8.8 mg/dL (8.5-10.1)
[2022-11-08 18:16] LABS: ALBUMIN 3.8 g/dl (3.4-5.0)
[2022-11-08 18:19] LABS: CREATININE 0.7 mg/dL (0.55-1.3)
[2022-11-08 18:20] LABS: BILIRUBIN,TOTAL 0.3 mg/dL (0.2-1); TOT PROT 7.8 g/dl (6.4-8.2)
[2022-11-08 18:58] LABS: ANISOCYTOSIS 3+; MACROCYTOSIS 0
[2022-11-08 20:32] LABS: URINE APPEARANCE CLEAR; URINE BILIRUBIN NEGATIVE (NEGATIVE); URINE COLOR YELLOW; URINE GLUCOSE (UA) NEGATIVE (NEGATIVE); URINE KETONE NEGATIVE (NEGATIVE); URINE LEUK ESTERASE NEGATIVE (NEGATIVE); URINE NITRITE NEGATIVE (NEGATIVE); URINE PROTEIN NEGATIVE (NEGATIVE); URINE UROBILINOGEN 0.2 mg/dL (0.2-1.0)
[2022-11-08 21:20] VITALS: BP 117/79; PULSE 75; RESP 20
== END 2022-11-08 21:26 | disposition home or self-care (01) ==
LOC: JER 16:54
DX: O20.9 Hemorrhage in early pregnancy, unspecified (principal); O21.9 Vomiting of pregnancy, unspecified; Z3A.00 Weeks of gestation of pregnancy not specified
CPT/HCPCS: 36415; 76817-TC; 80053; 81003; 84702; 85025; 85610; 85730; 86850; 86900; 86901; 87086; 99283-25

== ENCOUNTER 2023-03-05 09:54 | Emergency (ER) | payer OTHER ==
[2023-03-05 10:00] VITALS: BMI 28.0
[2023-03-05 12:14] LABS: HEMATOCRIT 32.3 % (32.4-45.2); HEMOGLOBIN 10.9 GM/dL (10.7-15.3); LYMPH % 25.7 % (8-40); MCH 26.2 pg (25.7-33.7); MCHC 33.7 g/dl (32.0-36.0); MEAN CELL VOLUME 77.7 fl (80-96); MEAN PLT VOLUME 7.9 fl (7.5-11.1); MONO % 7.7 % (3.8-10.2); NEUT % 64.6 % (42.8-82.8); PLATELET COUNT 302 10^3/uL (134-434); RBC 4.15 M/mm3 (3.60-5.2); RDW 20.7 % (11.6-15.6); WHITE BLOOD COUNT 8.3 K/mm3 (4.0-10.0)
[2023-03-05 12:20] LABS: INR 1.06 (0.83-1.09); PROTHROMBIN TIME (PATIENT) 12.3 SEC (9.7-13.0)
[2023-03-05 12:22] LABS: ACTIVATED PTT 29.4 SECONDS (25.2-36.5)
[2023-03-05 12:48] LABS: ANISOCYTOSIS 2+; MACROCYTOSIS 0; OVALOCYTE 1+; TARGET CELLS 1+; TEAR DROP CELLS 1+
[2023-03-05 12:56] LABS: BLOOD UREA NITROGEN 7.4 mg/dL (7-18); CALCIUM 9.1 mg/dL (8.5-10.1)
[2023-03-05 12:57] LABS: ALBUMIN 2.7 g/dl (3.4-5.0)
[2023-03-05 13:00] LABS: CREATININE 0.5 mg/dL (0.55-1.3)
[2023-03-05 13:01] LABS: BILIRUBIN,TOTAL 0.2 mg/dL (0.2-1); TOT PROT 6.6 g/dl (6.4-8.2)
[2023-03-05 16:03] VITALS: BP 117/73; PULSE 82; RESP 16; TEMP 98.3
== END 2023-03-05 16:47 | disposition home or self-care (01) ==
LOC: JER 09:54
DX: O26.892 Other specified pregnancy related conditions, second trimester (principal); R00.2 Palpitations; R42 Dizziness and giddiness; R51.9 Headache, unspecified; R06.02 Shortness of breath; Z3A.23 23 weeks gestation of pregnancy
CPT/HCPCS: 36415; 80053; 82550; 84439; 84443; 84481; 84484; 85025; 85610; 85730; 93005; 93010; 93308; 93970-TC; 99285-25